=== PATIENT | female | born 1985 | race Caucasian/White ===

== ENCOUNTER 2017-05-23 15:52 | Emergency (ER) | payer OTHER, SELFPAY | END 2017-05-23 19:04 | disposition home or self-care (01) | PROVIDERS: Emergency Provider Emergency Medicine; Visit Provider Emergency Medicine | DX: K52.9 Noninfective gastroenteritis and colitis, unspecified (principal); I10 Essential (primary) hypertension; J44.9 Chronic obstructive pulmonary disease, unspecified; J45.909 Unspecified asthma, uncomplicated; K21.9 Gastro-esophageal reflux disease without esophagitis; F41.9 Anxiety disorder, unspecified | CPT/HCPCS: 80053; 81001; 82150; 83690; 85025; 87275; 87276; 96365; 96375; 99284; J2405 ==